=== PATIENT | male | born 1995 | race Two or more races ===

== ENCOUNTER 2023-06-07 20:48 | Emergency (ER) | payer OTHER ==
[~2023-06-07] VITALS: Ht 167.6 cm; Wt 68.0 kg
[2023-06-07] MEDS ORDERED: VISTARIL25 MG PO (22:26)
[2023-06-07] MEDS ORDERED: KETOROLAC TROMETHAMINE 60 MG VIAL IM ONE (22:30)
[2023-06-07] MEDS ORDERED: hydrOXYzine PAMOATE 25 MG CAPSULE PO ONE (22:30)
== END 2023-06-07 22:34 | disposition home or self-care (01) ==
LOC: ER 20:49
DX: R07.89 Other chest pain (principal)